=== PATIENT | female | born 1940 | race Caucasian/White ===

== ENCOUNTER 2017-07-30 10:22 | Inpatient (IN) | payer OTHER, BC ==
[~2017-07-30] VITALS: Ht 154.9 cm; Wt 52.6 kg
--- NOTE | ~2017-07-30 | S ---
[facility] [place] [address] SURGICAL PATH RPT PROCEDURE Name: ZULAY LEON Room #: 433-I DIS IN M.R.#: [id number] Admission: 07/30/17 Date of : 36 Discharge: 07/31/17 Report #: [id number] Path Case #: [id number] PATHOLOGY REPORT COLLECTION DATE: 07/31/2017 RECEIVED DATE: 07/31/2017 SUBMITTING PHYS: Dr. Jamal Valentino OTHER PHYS: Dr. Parker Blackman SPECIMEN(S) RECEIVED: A.Small bowel B.Antrum C.Ileum * * * * * * * * * * * * FINAL DIAGNOSIS: A. Small bowel mucosa, small bowel, endoscopic biopsy: - No significant diagnostic abnormalities present. B. Gastric mucosa, antrum, endoscopic biopsy: - Moderate reactive gastropathy. - Negative for intestinal metaplasia or atrophy. - Negative for Helicobacter pylori. C. Small bowel mucosa, ileum, endoscopic biopsy: - No significant diagnostic abnormalities present. (IUV:jael; 08/03/2017) COMMENT: Well-controlled Helicobacter pylori immunohistochemical stain performed on block B1 - Negative. PATHOLOGIST: Ileana Capone M.D. REPORT ELECTRONICALLY SIGNED BY: Ileana Capone M.D. DATE/TIME: 08/03/2017 13:29 * * * * * * * * * * * * GROSS PATHOLOGY: A. Received in formalin labeled "Zulay Leon, BX small bowel," is a segment of herbert soft tissue measuring 0.4 cm in maximum dimension. The specimen is submitted entirely in cassette A1. B. Received in formalin labeled "HERIBERTO Small antrum, rule out H. pylori," is a segment of herbert soft tissue measuring 0.4 cm in maximum dimension. The specimen is submitted entirely in cassette B1. C. Received in formalin labeled "HERIBERTO Small ileum," is a segment of herbert soft tissue measuring 0.4 cm in maximum dimension. The specimen is submitted entirely in cassette C1. [address] [place] [address] SURGICAL PATH RPT PROCEDURE Name: ZULAY LEON Room #: [address] [place] [address] [place] ..#: [id number] Admission: 07/30/17 Date of : 36 Discharge: 07/31/17 Report #: [id number] Path Case #: [id number] (TSD; 07/31/2017) CLINICAL HISTORY: Pre-OP DX: Abnormal imaging, abdominal pain, vomiting Post-OP DX: Diverticulosis INITIAL CPT CODE(S): A; 17124 B; 54556, 74418 C; 16144 Professional services performed by [facility] at [address] , [place] [address] Technical services performed by [facility] at [address] [place] [address], [address], [place] [address]. [facility] [address] [address] PHONE: [phone] DIRECTOR: Ermias Meyer M.D. * * * END OF REPORT * * *
--- NOTE | ~2017-07-30 | EKG ---
[place] [address] [facility] 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 : 1940 Requested By: Baljit Birmingham Order Number: [id number] MD: Lemuel Herron Measurements Intervals [place] Rate: 83 P: 67 ME: 128 QRS: 15 QRSD: 86 T: 75 QT: 370 QTc: 435 Interpretive Statements Sinus rhythm Ventricular premature complex Nonspecific T abnrm, anterolateral leads No previous ECG available for comparison Electronically Signed On 07-30-2017 16:29:30 BRANCH OFFICE ADMINISTRATOR by Lemuel Herron [email or web address] <ELECTRONICALLY SIGNED> By: Lemuel Herron MD 07/30/17 1629 27 27 Lemuel Herron MD /[email or web address]
[2017-07-30 10:24] VITALS: BP 160/72
[2017-07-30 11:22] LABS: ABSOLUTE NEUTROPHILS 7.8 thou/uL (1.4-8.2); BASOPHILS 0.5 % (0.0-2.0); EOSINOPHILS 0.9 % (0.0-3.0); HEMATOCRIT 42.8 % (37.0-47.0); LYMPHOCYTES 14.9 % (24.0-44.0); MCH 27.8 pg (26.0-34.0); MCHC 32.9 g/dL (28.0-37.0); MCV 84.6 fL (80.0-100.0); MONOCYTES 7.8 % (1.0-8.0); PLATELET COUNT 312 thou/uL (150-400); POLYS 75.9 % (36.0-66.0); RBC 5.06 mil/uL (4.20-5.00); RDW 17.1 % (10.5-14.5); WBC 10.2 thou/uL (4.0-11.0)
[2017-07-30 11:26] LABS: ANION GAP 8 mmol/L (7-16); BUN 13 mg/dL (7-18); CALCIUM 10.3 mg/dL (8.5-10.1); CHLORIDE 103 mmol/L (98-107); CO2 30 mmol/L (21-32); CREATININE 1.2 mg/dL (0.6-1.0); GLUCOSE 139 mg/dL (74-106); POTASSIUM 3.6 mmol/L (3.5-5.1); SODIUM 141 mmol/L (136-145)
[2017-07-30 11:34] LABS: ALBUMIN 3.7 g/dL (3.4-5.0); DIRECT BILIRUBIN 0.1 mg/dL (<0.1-0.3); LIPASE 88 U/L (73-393); SGOT 30 U/L (15-37); SGPT 26 U/L (30-65); TOTAL BILIRUBIN 0.6 mg/dL (<0.1-1.0); TOTAL PROTEIN 7.6 g/dL (6.4-8.2); TROPONIN-I < 0.04 ng/mL (<0.06)
[2017-07-30] MEDS ORDERED: METHOTREXATE 22.5 MG PO (12:18)
[2017-07-30] MEDS ORDERED: SIMVASTATIN80 MG PO (12:18)
[2017-07-30 15:02] VITALS: BP 150/79
[2017-07-30 15:18] VITALS: BP 140/86
[2017-07-30 16:00] VITALS: BP 176/85; BP 178/118
[2017-07-30 19:46] VITALS: BP 188/84
[2017-07-31] VITALS (9 sets, daily range): BP systolic 131–178; BP diastolic 54–96
[2017-07-31 06:15] LABS: HEMATOCRIT 34.7 % (37.0-47.0); MCH 28.1 pg (26.0-34.0); MCHC 33.2 g/dL (28.0-37.0); MCV 84.6 fL (80.0-100.0); RDW 16.6 % (10.5-14.5); WBC 5.5 thou/uL (4.0-11.0)
[2017-07-31 06:32] LABS: ALBUMIN 2.8 g/dL (3.4-5.0); CALCIUM 8.6 mg/dL (8.5-10.1); CREATININE 0.9 mg/dL (0.6-1.0); POTASSIUM 3.1 mmol/L (3.5-5.1); TOTAL BILIRUBIN 0.5 mg/dL (<0.1-1.0)
[2017-07-31 06:40] LABS: HEMOGLOBIN 11.5 gm/dL (12.0-15.0); PLATELET COUNT 234 thou/uL (150-400)
[2017-07-31 07:31] LABS: ABSOLUTE NEUTROPHILS 1.9 thou/uL (1.4-8.2); ANISOCYTOSIS 1+; POLYCHROMASIA OCCASIONAL
[2017-07-31] MEDS ORDERED: PROTONIX40 M1 PO (17:09)
[2017-09-03] MEDS ORDERED: LOPRESSOR50 PO (13:16)
== END 2017-07-31 18:17 | disposition home or self-care (01) | DRG 391 ==
LOC: ER 10:22 → 4S 14:50 → EROBS 14:50 → 4S 15:45 → ENTRNSPT 07-31 18:00 → 4S 07-31 18:17
PROVIDERS: Family Medicine; Nurse Practitioner
DX: K29.70 Gastritis, unspecified, without bleeding (principal); N17.1 Acute kidney failure with acute cortical necrosis; K20.9 Esophagitis, unspecified; K22.2 Esophageal obstruction; K44.9 Diaphragmatic hernia without obstruction or gangrene; K57.30 Diverticulosis of large intestine without perforation or abscess without bleeding; K64.8 Other hemorrhoids; K52.9 Noninfective gastroenteritis and colitis, unspecified; I10 Essential (primary) hypertension; M06.9 Rheumatoid arthritis, unspecified; J44.9 Chronic obstructive pulmonary disease, unspecified; R63.4 Abnormal weight loss; Z68.21 Body mass index [BMI] 21.0-21.9, adult; Z79.899 Other long term (current) drug therapy; Z80.0 Family history of malignant neoplasm of digestive organs
CPT/HCPCS: 10195; 62110; 62900; 70005

== ENCOUNTER → 2017-08-06 | Outpatient (CLI) | payer OTHER, BC ==
[~2017-08-06] VITALS: Ht 154.9 cm; Wt 54.0 kg
[~2017-08-06] MED LIST: LOPRESSOR50 PO; METHOTREXATE 22.5 MG PO; PROTONIX40 M1 PO; REGLAN 5 MG TAB5 MG PO; SIMVASTATIN80 MG PO; ZOFRAN ODT4 M1 PO
[2017-08-06 12:57] VITALS: BP 144/67
== END ==
LOC: SEN 08-04 15:24
DX: Z09 Encounter for follow-up examination after completed treatment for conditions other than malignant neoplasm (principal); I10 Essential (primary) hypertension; J44.9 Chronic obstructive pulmonary disease, unspecified; M06.9 Rheumatoid arthritis, unspecified

== ENCOUNTER 2017-08-07 14:22 | Inpatient (IN) | payer OTHER, BC ==
[~2017-08-07] VITALS: Ht 154.9 cm; Wt 52.6 kg
[~2017-08-07 14:22] MED LIST changes: -LOPRESSOR50 PO; -REGLAN 5 MG TAB5 MG PO; -ZOFRAN ODT4 M1 PO
[2017-08-07 14:23] VITALS: BP 143/117
[2017-08-07 17:40] LABS: ABSOLUTE NEUTROPHILS 6.4 thou/uL (1.4-8.2); BASOPHILS 0.2 % (0.0-2.0); EOSINOPHILS 0.4 % (0.0-3.0); HEMATOCRIT 40.9 % (37.0-47.0); HEMOGLOBIN 13.4 gm/dL (12.0-15.0); LYMPHOCYTES 16.3 % (24.0-44.0); MCH 27.5 pg (26.0-34.0); MCHC 32.7 g/dL (28.0-37.0); MCV 84.1 fL (80.0-100.0); MONOCYTES 11.9 % (1.0-8.0); PLATELET COUNT 246 thou/uL (150-400); POLYS 71.2 % (36.0-66.0); RBC 4.86 mil/uL (4.20-5.00); RDW 17.2 % (10.5-14.5)
[2017-08-07 17:41] LABS: URINE BLOOD NEGATIVE (Negative); URINE CLARITY CLEAR; URINE COLOR YELLOW; URINE GLUCOSE-RANDOM* NEGATIVE (Negative); URINE KETONES 1+ (Negative); URINE NITRITE-REFLEX NEGATIVE (Negative); URINE PROTEIN (DIPSTICK) TRACE (Negative)
[2017-08-07 17:43] LABS: CALCIUM 8.8 mg/dL (8.5-10.1); POTASSIUM 3.5 mmol/L (3.5-5.1)
[2017-08-07 17:45] LABS: URINE BILIRUBIN NEGATIVE (Negative); URINE LEUKOCYTES-REFLEX TRACE (Negative)
[2017-08-07 17:49] LABS: ALBUMIN 3.1 g/dL (3.4-5.0); TOTAL BILIRUBIN 0.8 mg/dL (<0.1-1.0); TOTAL PROTEIN 6.8 g/dL (6.4-8.2)
[2017-08-07] MEDS ORDERED: ZOFRAN ODT4 M1 PO (18:40)
[2017-08-07 19:43] VITALS: BP 163/87
[2017-08-07 20:36] VITALS: BP 144/72
[2017-08-08 04:00] VITALS: BP 147/70
[2017-08-08 08:02] VITALS: BP 154/78
[2017-08-08 17:32] VITALS: BP 164/79
[2017-08-08 20:30] VITALS: BP 155/65
[2017-08-09 04:30] VITALS: BP 130/57
[2017-08-09 07:27] VITALS: BP 141/79
[2017-08-09 15:36] VITALS: BP 139/70
[2017-08-09 20:00] VITALS: BP 155/62
[2017-08-10 04:00] VITALS: BP 144/66
[2017-08-10 07:45] VITALS: BP 159/74
[2017-08-10 15:55] VITALS: BP 153/56
[2017-08-10] MEDS ORDERED: REGLAN 5 MG TAB5 MG PO (17:24)
[2017-08-10 20:06] VITALS: BP 161/69
[2017-08-11 01:55] VITALS: BP 161/69
[2017-08-11 04:22] VITALS: BP 143/72
[2017-08-11 07:00] LABS: ALBUMIN 2.4 g/dL (3.4-5.0); CALCIUM 8.4 mg/dL (8.5-10.1); CREATININE 0.8 mg/dL (0.6-1.0); TOTAL BILIRUBIN 0.4 mg/dL (<0.1-1.0); TOTAL PROTEIN 5.5 g/dL (6.4-8.2)
[2017-08-11 07:10] VITALS: BP 149/72
[2017-08-11 07:21] LABS: POTASSIUM 2.8 mmol/L (3.5-5.1)
[2017-08-11 11:40] VITALS: BP 163/75
[2017-08-11 15:06] LABS: CALCIUM 8.7 mg/dL (8.5-10.1); POTASSIUM 3.6 mmol/L (3.5-5.1)
[2017-08-11 15:27] VITALS: BP 163/75
[2017-09-03] MEDS ORDERED: LOPRESSOR50 PO (13:16)
== END 2017-08-11 15:48 | disposition home or self-care (01) | DRG 388 ==
LOC: ER 14:22 → 4E 18:45 → EROBS 18:45 → 4E 20:18 → ENTRNSPT 08-11 15:29 → EDTRNSPTSTS 08-11 15:32 → 4E 08-11 15:48
PROVIDERS: Hospitalist; Physician Assistant
PROC: 02HV33Z Insertion of Infusion Device into Superior Vena Cava, Percutaneous Approach (ICD-10-PCS; 2017-08-07)
PROC: B548ZZA Ultrasonography of Superior Vena Cava, Guidance (ICD-10-PCS; 2017-08-07)
PROC: 0D9670Z Drainage of Stomach with Drainage Device, Via Natural or Artificial Opening (ICD-10-PCS; principal; 2017-08-08)
DX: K56.600 Partial intestinal obstruction, unspecified as to cause (principal); E43 Unspecified severe protein-calorie malnutrition; I10 Essential (primary) hypertension; M06.9 Rheumatoid arthritis, unspecified; J44.9 Chronic obstructive pulmonary disease, unspecified; K29.70 Gastritis, unspecified, without bleeding; K21.9 Gastro-esophageal reflux disease without esophagitis; K31.89 Other diseases of stomach and duodenum; Z80.0 Family history of malignant neoplasm of digestive organs; Z79.899 Other long term (current) drug therapy
CPT/HCPCS: 10084

== ENCOUNTER → 2017-08-27 | Outpatient (CLI) | payer OTHER, BC ==
[~2017-08-27] MED LIST changes: +LOPRESSOR50 PO; +REGLAN 5 MG TAB5 MG PO; +ZOFRAN ODT4 M1 PO
== END ==
LOC: CAT 08:55
DX: K58.9 Irritable bowel syndrome, unspecified (principal); R59.0 Localized enlarged lymph nodes; J94.8 Other specified pleural conditions

== ENCOUNTER → 2017-09-03 | Outpatient (CLI) | payer OTHER, BC ==
[2017-09-03 13:03] VITALS: BP 148/71
== END ==
LOC: SEN 09:14
DX: I10 Essential (primary) hypertension (principal)

== ENCOUNTER → 2017-09-07 | Outpatient (CLI) | payer OTHER, BC | END | disposition home or self-care (01) | LOC: GI 07:40 | DX: K56.699 Other intestinal obstruction unspecified as to partial versus complete obstruction (principal); K63.3 Ulcer of intestine; R59.0 Localized enlarged lymph nodes; Z79.899 Other long term (current) drug therapy ==

== ENCOUNTER → 2017-09-24 | Outpatient (CLI) | payer OTHER, BC | LOC: RAD 06:08 | DX: T18.2XXA Foreign body in stomach, initial encounter (principal); K55.1 Chronic vascular disorders of intestine; X58.XXXA Exposure to other specified factors, initial encounter; Y93.89 Activity, other specified; Y92.89 Other specified places as the place of occurrence of the external cause; Y99.8 Other external cause status ==

== ENCOUNTER → 2017-12-10 | Outpatient (CLI) | payer OTHER, BC | LOC: RAD 09:52 | DX: N20.0 Calculus of kidney (principal) ==

== ENCOUNTER → 2018-04-15 | Outpatient (CLI) | payer OTHER, BC ==
[2018-04-15 10:20] LABS: CREATININE 1.1 mg/dL (0.6-1.0)
== END ==
LOC: CAT 08:43
PROVIDERS: Internal Medicine Gastroenterology
DX: K31.84 Gastroparesis (principal); J92.9 Pleural plaque without asbestos; R59.0 Localized enlarged lymph nodes

== ENCOUNTER → 2018-10-21 | Outpatient (CLI) | payer OTHER, BC | LOC: ULTRA 08:11 | DX: M79.662 Pain in left lower leg (principal); M05.79 Rheumatoid arthritis with rheumatoid factor of multiple sites without organ or systems involvement; J47.9 Bronchiectasis, uncomplicated; K50.00 Crohn's disease of small intestine without complications ==